=== PATIENT | male | born 1955 | race African-American/Black ===

== ENCOUNTER 2018-10-31 08:33 | Day surgery (SDC) | payer BC ==
[~2018-10-31] VITALS: Ht 193 cm; Wt 101.7 kg
[2018-10-31 09:10] VITALS: BP 139/91; PULSE 75; TEMP 98.1
[2018-10-31] MEDS ORDERED: FLOMAX 0.40.4 MG/CAP PO (09:39)
[2018-10-31] MEDS ORDERED: CARDIZEM120 MG PO (09:41)
[2018-10-31] MEDS ORDERED: LIPITOR 40MG TA40 MG PO (09:42)
[2018-10-31 10:38] VITALS: BP 112/87; PULSE 67; TEMP 97.5
--- NOTE | 2018-10-31 10:38 | NUR ---
Pt returns from endo procedure via cart to bay [address]. Pt ambulates from cart to recliner with RN assist. Monitors on and alarms set. Call light within reach. Report received from JUAN MANUEL Genao. Pt alert and answering all questions appropriately. Pt's present in room. Pt requests muffin and juice. Pt denies pain or nausea.
[2018-10-31 10:45] VITALS: BP 112/86; PULSE 64
--- NOTE | 2018-10-31 10:45 | NUR ---
Pt taking food and drink well. No complaints voiced by patient.
[2018-10-31 11:00] VITALS: BP 124/88; PULSE 62
[2018-10-31 11:15] VITALS: BP 117/82; PULSE 62
--- NOTE | 2018-10-31 11:15 | NUR ---
Discharge instructions given to patient and . All questions answered to their satisfaction. Handed to patient and are a thank you card, discharge instructions, diagnosis information, and a discharge med sheet.
--- NOTE | 2018-10-31 11:25 | NUR ---
Pt ambulates out of hospital with Jossy, assist, to private vehicle driven by .
[2018-10-31 13:01] VITALS: BP 118/77; PULSE 60
== END 2018-10-31 11:25 | disposition home or self-care (01) ==
LOC: SDCO 08:33
DX: Z12.11 Encounter for screening for malignant neoplasm of colon (principal); E78.00 Pure hypercholesterolemia, unspecified; I10 Essential (primary) hypertension
CPT/HCPCS: J2250; J3010; J7030